=== PATIENT | male | born 1990 | race African-American/Black ===

== ENCOUNTER → 2018-06-03 | Outpatient (CLI) | payer OTHER | LOC: MHCPAIN 08:01 | DX: G89.29 Other chronic pain (principal); M47.812 Spondylosis without myelopathy or radiculopathy, cervical region; R51 Headache; M54.81 Occipital neuralgia | CPT/HCPCS: G0463 ==

== ENCOUNTER → 2018-06-06 | Outpatient (CLI) | payer OTHER | LOC: MHCPAIN 10:23 | DX: M54.12 Radiculopathy, cervical region (principal); M50.90 Cervical disc disorder, unspecified, unspecified cervical region; R51 Headache ==

== ENCOUNTER → 2018-06-11 | Outpatient (CLI) | payer OTHER | LOC: MHCPAIN 09:24 | DX: G89.29 Other chronic pain (principal); M50.90 Cervical disc disorder, unspecified, unspecified cervical region; M54.81 Occipital neuralgia; R51 Headache | CPT/HCPCS: G0463 ==

== ENCOUNTER → 2018-06-13 | Outpatient (CLI) | payer OTHER | LOC: MHCPAIN 08:27 | DX: M54.12 Radiculopathy, cervical region (principal); R51 Headache ==

== ENCOUNTER → 2018-06-17 | Outpatient (CLI) | payer OTHER | LOC: MHCPAIN 11:53 | DX: M54.12 Radiculopathy, cervical region (principal); M50.90 Cervical disc disorder, unspecified, unspecified cervical region | CPT/HCPCS: J1100; J2250; J3010 ==